=== PATIENT | female | born 1980 | race Caucasian/White ===

== ENCOUNTER 2017-04-28 12:28 | Emergency (ER) | payer MEDICAID ==
[~2017-04-28] VITALS: Ht 157.5 cm; Wt 52.5 kg
[2017-04-28 12:32] VITALS: Ht 157.5 cm; Wt 52.5 kg
--- NOTE | 2017-04-28 13:46 | RADRPT ---
PROCEDURE: OBSTETRICAL ULTRASOUND WITH ENDOVAGINAL IMAGES CLINICAL INDICATION: Vaginal Bleed () TECHNIQUE: Multiple sonographic images of the pelvis were obtained utilizing a transabdominal and endovaginal technique. The images were reviewed on a PACS workstation. COMPARISON: None. LMP: 02/19/2017 FINDINGS: There is a single intrauterine with mean sac diameter of 2.42 cm, yolk sac, and crown-rump length of 0.47 cm which is consistent with a gestational age of 6 weeks, 5 days . The estimated date of delivery by ultrasound is 12/17/2017 . The estimated gestational age by LMP is 9 weeks, 5 days . The estimated date of delivery by LMP is 11/26/2017 . No heart tones are detected. The right ovary measures 2.4 x 1.6 x 1.7 cm. The left ovary is not visualized. There is normal vascu lar flow in the right ovary. No significant ovarian lesions are seen. No significant pelvic free fluid is identified. IMPRESSION: A single intrauterine gestation is identified which would be consistent with a gestational age of 6 weeks, 5 days and an estimated date of delivery of 12/17/2017. No heart tones are detected. Fi ndings are likely due to a viable intrauterine gestation although ectopic and early demise are not entirely excluded. Short-term follow-up ultrasound and serial Beta HCG measurements a re recommended for further evaluation. Nonvisualization of the left ovary. RPTAT: EE Physician Candido Date Time Electronically viewed and signed by Physician Candido on 04/28/2017 13:45 /
--- NOTE | 2017-04-28 14:28 | ERD ---
ER Documentation Chief Complaint Date/Time DATE: 04/28/17 TIME: 14:27 Chief Complaint Pt present with VB and 8 weeks X 20 min. HPI 37-year-old female who is 8 weeks complaining of very light vaginal bleeding that began about 15 minutes before arriving to the emergency room. She admits to mild pelvic cramping. Denies any dysuria hematuria or frequency. Denies any fever. Denies any nausea or vomiting. She is taking vitamins. ROS All systems reviewed and are negative except as per history of present illness. Allergies Allergies: Coded Allergies: No Known Allergy (Unverified , 04/28/17) PMhx/Soc Medical and Surgical Hx: pt denies Medical Hx, pt denies Surgical Hx Hx Alcohol Use: No Hx Substance Use: No Hx Tobacco Use: No FmHx Family History: No diabetes Physical Exam Vitals Physical Exam INITIAL VITAL SIGNS: Reviewed by me GENERAL: Awake, alert and oriented x 4, well appearing, nontoxic, speaking in full sentences. No acute distress HEAD: Atraumatic RESPIRATORY: Clear to auscultation bilaterally. Symmetric chest wall rise. No wheezing or rales. No accessory muscle use. CV: Regular rate and rhythm. No murmurs, rubs, or gallops. ABDOMEN: Soft, non-distended. Nontender. Negative Jay. Negative McBurneys point tenderness. No CVA tenderness bilaterally. No guarding. No rebound. : Deffered. Results 24 hrs Laboratory Tests Test 04/28/17 14:05 04/28/17 14:10 Urine Color YELLOW Urine Clarity CLOUDY Urine pH 8.0 Urine Specific [place] 1.012 Urine Ketones NEGATIVEmg/dL Urine Nitrite NEGATIVEmg/dL Urine Bilirubin NEGATIVEmg/dL Urine Urobilinogen NEGATIVEmg/dL Urine Leukocyte Esterase NEGATIVELeu/ul Urine Microscopic RBC 0/HPF Urine Microscopic WBC 0/HPF Urine Bacteria FEW/HPF Urine Hemoglobin 2+mg/dL Urine Glucose NEGATIVEmg/dL Urine Total Protein NEGATIVEmg/dl White Blood Count 6.610^3/ul Red Blood Count 4.6810^6/ul Hemoglobin 12.3g/dl Hematocrit 38.8% Mean Corpuscular Volume 82.9fl Mean Corpuscular Hemoglobin 26.3pg Mean Corpuscular Hemoglobin Concent 31.7g/dl Red Cell Distribution Width 16.6% Platelet Count 64036^3/UL Mean Platelet Volume 11.2fl Neutrophils % 73.9% Lymphocytes % 16.6% Monocytes % 6.5% Eosinophils % 2.0% Basophils % 0.5% Nucleated Red Blood Cells % 0.0/100WBC Neutrophils # (Manual) 4.910^3/ul Lymphocytes # 1.110^3/ul Monocytes # 0.410^3/ul Eosinophils # 0.110^3/ul Basophils # 0.010^3/ul Nucleated Red Blood Cells # 0.010^3/ul Beta HCG, Quantitative 45448.0mIU/ml Procedures/MDM Patient presents with vaginal bleeding during . The bleeding is very light. Patients is alert, oriented, well appearing, and in no distress with normal vital signs. There is no fever, tachycardia, or tachypnea. The differential diagnosis includes but is not limited to threatened/incomplete/ inevitable/complete , ectopic , non- related bleeding , and others.Ultrasound showedA single intrauterine gestation is identified which would be consistent with a gestational age of 6 weeks, 5 days and an estimated date of delivery of 12/17/2017. No heart tones are detected. Findings are likely due to a viable intrauterine gestation although ectopic and early demise are not entirely excluded. Short-term follow- up ultrasound and serial Beta HCG measurements are recommended for further evaluation. Patient counseled regarding my diagnostic impression and care plan. Prior to discharge all questions answered. Pt agrees with treatment plan and understands strict return precautions. Pt is instructed to follow up with primary care provider within 24-48 hours. Precautionary instructions provided including instructions to return to the ER if not improving or for any worsening or changing symptoms or concerns. Departure Diagnosis: Primary Impression: Threatened Condition: Stable MARGUERITE ELMORE PA-C Apr 28, 2017 14:28 MARGUERITE ELMORE PA-C Apr 28, 2017 14:28
[2017-04-28 14:33] LABS: BASOPHILS % 0.5 % (0.0-2.0); EOSINOPHILS # 0.1 10^3/ul (0.0-0.5); HEMATOCRIT 38.8 % (37.0-47.0); HEMOGLOBIN 12.3 g/dl (12.0-16.0); LYMPHOCYTES # 1.1 10^3/ul (0.8-2.9); LYMPHOCYTES % 16.6 % (15.0-51.0); MEAN CORPUSCULAR HEMOGLOBIN 26.3 pg (29.0-33.0); MEAN CORPUSCULAR HGB CONC 31.7 g/dl (32.0-37.0); MEAN CORPUSCULAR VOLUME 82.9 fl (82.0-101.0); MEAN PLATELET VOLUME 11.2 fl (7.4-10.4); MONOCYTE # 0.4 10^3/ul (0.3-0.9); MONOCYTES % 6.5 % (0.0-11.0); NEUTROPHILS % 73.9 % (39.0-77.0); PLATELET COUNT 234 10^3/UL (140-415); RED BLOOD COUNT 4.68 10^6/ul (4.20-5.40); RED CELL DISTRIBUTION WIDTH 16.6 % (11.5-14.5); WHITE BLOOD COUNT 6.6 10^3/ul (4.8-10.8)
[2017-04-28 14:55] LABS: ADD UMIC YES; UR ASCORBIC ACID NEGATIVE (NEGATIVE); UR BACTERIA FEW /HPF (NONE SEEN); UR BILIRUBIN (Dip) NEGATIVE (NEGATIVE); UR BLOOD (Dip) 2+ mg/dL (NEGATIVE); UR CLARITY CLOUDY (CLEAR); UR COLOR YELLOW (YELLOW); UR GLUCOSE (Dip) NEGATIVE (NEGATIVE); UR KETONES (Dip) NEGATIVE (NEGATIVE); UR LEUKOCYTE ESTERASE (Dip) NEGATIVE Leu/ul (NEGATIVE); UR NITRITE (Dip) NEGATIVE (NEGATIVE); UR RBC 0 /HPF (0-5); UR SPECIFIC GRAVITY (Dip) 1.012 (1.003-1.030); UR TOTAL PROTEIN (Dip) NEGATIVE (NEGATIVE); UR UROBILINOGEN (Dip) NEGATIVE (NEGATIVE); UR WBC CLUMPS FEW /HPF (NONE SEEN)
[2017-04-28 17:28] VITALS: BP 110/82; PULSE 66; RESP 16; TEMP 98.4
== END 2017-04-28 17:28 | disposition home or self-care (01) ==
LOC: FTE 12:28
DX: O20.0 Threatened abortion (principal); Z3A.08 8 weeks gestation of pregnancy
CPT/HCPCS: 36415; 76801; 76817; 81001; 84702; 85025; 86900; 86901; Z7502

== ENCOUNTER → 2017-05-05 | Outpatient (CLI) | payer MEDICAID ==
--- NOTE | 2017-05-05 10:41 | RADRPT ---
PROCEDURE: Obstetrical ultrasound . CLINICAL INDICATION: demise TECHNIQUE: Multiple sonographic images of the pelvis were obtained utilizing a transabdominal and endovaginal technique. The images were reviewed on a PACS workstation. COMPARISON: US PELVIS 04/28/2017 FINDINGS: There is a single intrauterine present with the crown-rump length measuring 0.5 cm which c orresponds to a calculated gestational age of 6 weeks and 1 day. No heart tones are identified . The right ovary is normal. The left ovary is not seen. No significant free fluid is present within the pelvis. No abnormal adnexal masses are present. RPTAT: AA IMPRESSION: Single intrauterine at 6 weeks and 1 day. No heart tones noted, consistent with demise. No significant interval change. .Srinivas Byrne MD, MD Date Time Electronically viewed and signed by .Srinivas Byrne MD, MD on 05/05/2017 10:41 .S/
== END | disposition home or self-care (01) ==
LOC: U/S 09:55
PROVIDERS: ATTEND Obstetrics & Gynecology
DX: O02.1 Missed abortion (principal)
CPT/HCPCS: 76801; 76817

== ENCOUNTER 2017-10-15 16:05 | Emergency (ER) | END 2017-10-15 19:38 | disposition home or self-care (01) ==

== ENCOUNTER 2017-10-17 16:10 | Emergency (ER) | END 2017-10-17 20:02 | disposition home or self-care (01) ==